=== PATIENT | female | born 1955 | race Caucasian/White ===

== ENCOUNTER 2017-03-29 11:40 | Emergency (ER) | payer OTHER ==
--- NOTE | 2017-04-01 09:05 | ER ---
ADMIT: 03/29/2017 RM/LOC: ER [facility] MR#: [id number] [address] JARED MCKOY [address] [place] [address] Emergency Room Report SEX: F AGE: 61 : 1955 DATE: 03/29/2017 CHIEF COMPLAINT: Injury to left lower leg. HISTORY OF PRESENT ILLNESS: This is a pleasant 61-year-old, white female, who presents to the ER after she sustained an injury while gardening at her home prior to arrival. She states she was walking when she ran into the spike and of a tomato plant cage. She states the spike did not go all the way through her leg. She did phone 911, they arrived, and did cut the rest of the tomato cage prior to arrival today. She rates the pain as a 1/10. Denies any other injuries. COURSE IN THE EMERGENCY ROOM: The patient was seen and examined. She is afebrile and nontoxic. She is in no acute distress. She does have an approximately quarter inch metal stake emanating from the left lower leg. I can palpate the course of the stakes subcutaneously posteriorly to the back of the leg, does not have an exit wound. Neurovascularly she is intact. Good pulses distally. Sensation is intact. I did consult with Dr. Miller, who examined the patient briefly, recommended removal under some local medications as well as IV antibiotics with outpatient treatment and followup. Procedure note: Foreign body removal. Visualize the quarter-inch metal stake exiting from the left lower leg it was thoroughly cleansed with Betadine. A 5 mg of morphine was given IM. After she was comfortable, I applied gentle traction. The foreign body was easily removed. It was irrigated thoroughly with normal saline. It was left open to continue to drain and heal by secondary intention. The patient was given Zosyn 3.375 mg IV prior to discharge. She was also given 4 mg of Zofran as well as tetanus prior to discharge today. ADMIT: 03/29/2017 RM/LOC: [facility] MR#: [id number] [address] JARED MCKOY [address], [place] [id number] Emergency Room Report SEX: F AGE: 61 : 1955 IMPRESSION: Puncture wound, status post foreign body removal. DISPOSITION: The patient was started on Cipro 500 mg p.o. b.i.d. x7 days, as well as Keflex 500 mg p.o. b.i.d. for 7 days. She is to follow up with either Dr. Miller in one week or with her primary care provider per her request. I did recommend follow up with Dr. Miller given the mechanism of injury and his knowledge of the case. She should continue to use Tylenol and ibuprofen as needed for pain. Apply ice as needed. Continue to monitor for signs, symptoms, and infections. She is going to complete the antibiotics. Questions sought and answered to best of my ability and patient's satisfaction. Discharged following completion of her IV antibiotic in stable condition. СЕРГЕЙ Smith / Omar Eddy MD / erikal JOB #: [id number] CC: Omar Eddy MD, Attending Physician Johnnie Shen MD, Family Physician
== END 2017-03-29 13:20 | disposition home or self-care (01) ==
LOC: ER 11:40
PROC: 0HCLXZZ Extirpation of Matter from Left Lower Leg Skin, External Approach (ICD-10-PCS; principal; 2017-03-29)
DX: S81.842A Puncture wound with foreign body, left lower leg, initial encounter (principal); Z23 Encounter for immunization; W26.8XXA Contact with other sharp object(s), not elsewhere classified, initial encounter; Y92.007 Garden or yard of unspecified non-institutional (private) residence as the place of occurrence of the external cause